=== PATIENT | female | born 1995 | race Caucasian/White ===

== ENCOUNTER 2017-02-07 08:18 | Emergency (ER) | payer OTHER ==
[~2017-02-07] VITALS: Ht 165.1 cm; Wt 79.5 kg
[2017-02-07] MEDS ORDERED: NS 1,000 ML IV ONE (09:45)
[2017-02-07] MEDS ORDERED: PROMETHAZINE INJ 25 MG/ML VIAL (J2550) IV ONE (09:45)
[2017-02-07 09:56] LABS: BASO # 0.1 K/mm3 (0.0-0.2); BASO % 0.5 % (0.0-1.0); EOS # 0.1 K/mm3 (0.0-0.50); EOS % 0.5 % (0.0-3.0); LARGE UNSTAINED CELL # 0.1 K/mm3 (0.0-0.4); LARGE UNSTAINED CELL % 0.7 % (0.0-4.0); LYMPH # 2.3 K/mm3 (1.5-6.5); LYMPH % 18.4 % (24.0-44.0); MEAN CORPUSCULAR HEMOGLOBIN 30.5 pg (27.0-33.0); MEAN CORPUSCULAR HGB CONC 35.7 g/dl (32.0-36.5); MEAN CORPUSCULAR VOLUME 85.5 fl (80.0-96.0); MONO # 0.4 K/mm3 (0.0-0.8); MONO % 2.9 % (0.0-5.0); NEUTROPHILS # 9.5 K/mm3 (1.8-7.7); PLATELET COUNT, AUTOMATED 373 k/mm3 (150-450); RED CELL DISTRIBUTION WIDTH 13.4 % (11.5-14.5); WHITE BLOOD COUNT 12.3 K/mm3 (4.0-10.0)
[2017-02-07 10:16] LABS: ANION GAP 9 MEQ/L (8-16); BLOOD UREA NITROGEN 11 MG/DL (7-18); CALCIUM LEVEL 9.6 MG/DL (8.5-10.1); CARBON DIOXIDE LEVEL 25 MEQ/L (21-32); CHLORIDE LEVEL 97 MEQ/L (98-107); CREATININE FOR GFR 0.87 MG/DL (0.55-1.02); GLOMERULAR FILTRATION RATE > 60.0 (>60); GLUCOSE, FASTING 81 MG/DL (70-105); POTASSIUM SERUM 3.4 MEQ/L (3.5-5.1); SODIUM LEVEL 131 MEQ/L (136-145)
[2017-02-07] MEDS ORDERED: DICL10TA PO (13:03)
[2017-02-07 13:15] VITALS: BP 124/80
== END 2017-02-07 13:17 | disposition home or self-care (01) ==
LOC: M ED 09:35
DX: O21.0 Mild hyperemesis gravidarum (principal); O26.891 Other specified pregnancy related conditions, first trimester; Z3A.01 Less than 8 weeks gestation of pregnancy; Z87.891 Personal history of nicotine dependence

== ENCOUNTER 2017-02-24 13:55 | Emergency (ER) | payer OTHER ==
[~2017-02-24] VITALS: Ht 165.1 cm; Wt 75.6 kg
[~2017-02-24 13:55] MED LIST: DICL10TA PO
[2017-02-24] MEDS ORDERED: METOCLOPRAMIDE 10 MG TAB PO ONE (14:30)
[2017-02-24] MEDS ORDERED: REGL10TA6 PO (16:02)
[2017-02-24 16:10] VITALS: BP 123/74
== END 2017-02-24 16:13 | disposition home or self-care (01) ==
LOC: M ED 13:55
DX: O21.0 Mild hyperemesis gravidarum (principal); Z3A.09 9 weeks gestation of pregnancy

== ENCOUNTER 2017-08-18 21:33 | Outpatient (CLI) | payer OTHER ==
[~2017-08-18 21:33] MED LIST changes: +REGL10TA6 PO
--- NOTE | 2017-08-20 08:08 | HPE ---
DATE OF ADMISSION: 08/18/2017 This lady is a 22-year-old, 1, para 0, last menstrual period (LMP) 12/22/2016, expected date of confinement (EDC) 09/28/2017, at 34 weeks who came in with decreased movement. Her risk factors is she has depression and she suffers from insomnia. She is on Unis[employer]. Labs show A positive. HIV negative. Hepatitis negative. RPR negative. Rubella immune. Varicella immune. Pap normal. Urine was negative. Gonorrhea and chlamydia were negative. 1-hour glucose was 99. Cystic fibrosis (CF) was negative. No acute distress. No contractions. Symphysis fundus height is 34, vertex presenting. Four quadrant bowel sounds are noted. She did have very moderate variability 6 by 25. heart rate is at 120. We showed her on the monitor strip, the baby is always in the green area, which is normal baseline. No decelerations. No contractions were noted. Urine is 1.000, pH 6, negative. Blood pressure 112/73. Respirations are 18. Pulse is 116. Temperature 97. We reviewed with her kick chart, premature rupture of membranes, labor, bleeding. She was uncomfortable to leave immediately because she has not been able to feel the baby move despite the fact there is a good category one strip. I explained her the placenta is anterior and sometimes she does not feel the baby as much as she should. She herself waited a little bit longer and after reviewing the strip again she felt better and she was discharged to follow up with her appointment on 08/28/2017. Again, we reemphasized kick chart, premature rupture of membranes, labor and bleeding. To return at any time or to call the provider at any time. The patient was discharged undelivered.
== END 2017-08-18 22:30 | disposition home or self-care (01) ==
LOC: M LDO 21:33
PROVIDERS: ATTEND Obstetrics & Gynecology
DX: O36.8130 Decreased fetal movements, third trimester, not applicable or unspecified (principal); Z3A.34 34 weeks gestation of pregnancy; O99.343 Other mental disorders complicating pregnancy, third trimester; G47.00 Insomnia, unspecified; O99.353 Diseases of the nervous system complicating pregnancy, third trimester

== ENCOUNTER 2017-09-17 22:56 | Outpatient (CLI) | payer OTHER | END 2017-09-18 00:10 | disposition home or self-care (01) | LOC: M LDO 22:56 | DX: O36.8130 Decreased fetal movements, third trimester, not applicable or unspecified (principal); Z3A.38 38 weeks gestation of pregnancy | CPT/HCPCS: 59025 ==

== ENCOUNTER 2017-10-05 18:08 | Inpatient (IN) | payer OTHER ==
[2017-10-05 19:58] LABS: HEMATOCRIT 39.5 % (36.0-47.0); HEMOGLOBIN 13.3 g/dl (12.0-16.0); MEAN CORPUSCULAR HEMOGLOBIN 29.7 pg (27.0-33.0); MEAN CORPUSCULAR HGB CONC 33.7 g/dl (32.0-36.5); MEAN CORPUSCULAR VOLUME 88.2 fl (80.0-96.0); PLATELET COUNT, AUTOMATED 291 10^3/uL (150-450); RED BLOOD COUNT 4.48 10^6/uL (4.00-5.40); RED CELL DISTRIBUTION WIDTH 17.2 % (11.5-14.5); WHITE BLOOD COUNT 11.2 10^3/uL (4.0-10.0)
[2017-10-05] MEDS: miSOPROStol 50 MCG 1/2 TAB (S0191) PO (20:32)
[2017-10-06] MEDS: miSOPROStol 50 MCG 1/2 TAB (S0191) PO (00:47)
[2017-10-06] MEDS ORDERED: OXYTOCIN DRIP 30 UNITS in APPROPRIATE DILUENT 1 EA IV ×2 (05:30→10:30)
[2017-10-06] MEDS ORDERED: miSOPROStol 50 MCG 1/2 TAB (S0191) PO (09:00)
[2017-10-06] MEDS ORDERED: LR 1,000 ML IV (16:10)
[2017-10-06] MEDS: NALBUPHINE HCL 10 MG/ML AMP (J2300) IV (16:35)
[2017-10-06] MEDS: PROMETHAZINE INJ 25 MG/ML VIAL (J2550) IV (16:37)
[2017-10-06] MEDS: NALBUPHINE HCL 10 MG/ML AMP (J2300) IM (16:39)
[2017-10-06] MEDS ORDERED: FENTANYL 2MCG/ML ROPIVACAINE 0.2% IN 0.9% NACL 200ML IVBAG As Ordered (19:56)
[2017-10-06] MEDS ORDERED: ePHEDrine SULFATE 25 MG/5 ML(5MG/ML) SYRINGE IV (21:16)
[2017-10-06] MEDS ORDERED: diphenhydrAMINE INJ 50MG/ML VIAL (J1200) IV (21:16)
[2017-10-06] MEDS ORDERED: NALOXONE INJ 0.4 MG/1 ML VIAL (J2310) IV (21:16)
[2017-10-06] MEDS ORDERED: EPIDURAL/PCA KEYS XX (21:16)
[2017-10-06] MEDS ORDERED: LACTATED RINGER'S 1000 ML IV (21:16)
[2017-10-06] MEDS ORDERED: ONDANSETRON 4MG/2ML VIAL (J2405) IV (21:16)
[2017-10-06] MEDS ORDERED: FENTANYL/ROPIVACAINE/NACL BAG 200 ML EPIDURAL (21:16)
[2017-10-06] MEDS ORDERED: EPIDURAL COMMENT XX (21:16)
[2017-10-06] MEDS ORDERED: REFRIGERATOR IV KEYS XX (21:16)
[2017-10-07] MEDS ORDERED: AZITHROMYCIN INJ 500MG VIAL (J0456) As Ordered (04:08)
[2017-10-07] MEDS ORDERED: ceFAZolin 2 GM/D5W 50 ML IV BAG (J0690 PER 500MG) As Ordered (05:07)
[2017-10-07] MEDS ORDERED: BICITRA 30ML SOLN UDC As Ordered (05:07)
[2017-10-07] MEDS ORDERED: LIDOCAINE PRES-FREE 2% 10ML AMP As Ordered ×3 (05:28→06:08)
[2017-10-07] MEDS ORDERED: SODIUM BICARBONATE 8.4% INJ 50 ML SYRINGE As Ordered (05:33)
[2017-10-07] MEDS ORDERED: OXYTOCIN INJ 10 UNITS/ML VIAL (J2590) As Ordered ×2 (06:03)
[2017-10-07] MEDS ORDERED: ONDANSETRON 4MG/2ML VIAL (J2405) As Ordered (06:24)
[2017-10-07] MEDS ORDERED: PHENYLephrine HCL 500 MCG/5 ML (100MCG/ML) SYRINGE (J2370) As Ordered (06:31)
[2017-10-07] MEDS ORDERED: MORPHINE PRES-FREE INJ 10 MG/10 ML VIAL (J2274) As Ordered (06:32)
[2017-10-07] MEDS ORDERED: NALOXONE INJ 0.4 MG/1 ML VIAL (J2310) IV ×2 (06:45)
[2017-10-07] MEDS ORDERED: ONDANSETRON 4MG/2ML VIAL (J2405) IV ×3 (06:45→07:30)
[2017-10-07] MEDS ORDERED: NALBUPHINE HCL 10 MG/ML AMP (J2300) IV (06:45)
[2017-10-07] MEDS ORDERED: METOCLOPRAMIDE INJ 10MG/2ML VIAL (J2765) IV ×2 (06:45→07:30)
[2017-10-07] MEDS ORDERED: fentaNYL 100 MCG/2 ML INJECTION (J3010) As Ordered (06:54)
[2017-10-07] MEDS ORDERED: BICITRA 30ML SOLN UDC PO (07:00)
[2017-10-07] MEDS ORDERED: AZITHROMYCIN INJ 500 MG, VIAL MATE ADAPTER 1 EACH in D5W 250 ML IV (07:00)
[2017-10-07] MEDS ORDERED: LR 1,000 ML IV (07:07)
[2017-10-07] MEDS ORDERED: PERCOCET 5MG/325MG TAB PO ×2 (07:15→07:30)
[2017-10-07] MEDS: KETOROLAC 30 MG/ML VIAL (J1885) IV ×3 (07:23→21:28)
[2017-10-07] MEDS ORDERED: fentaNYL 100 MCG/2 ML INJECTION (J3010) IV (07:30)
[2017-10-07] MEDS: LR 1,000 ML IV (07:30)
[2017-10-07] MEDS: DOCUSATE SODIUM 100 MG CAP PO ×2 (09:00→21:28)
[2017-10-07] MEDS: PRENATAL VITAMINS CHEWABLE TABLET PO (09:00)
[2017-10-07] MEDS: PERCOCET 5MG/325MG TAB PO ×2 (10:13→23:58)
[2017-10-07] MEDS: RHOGAM 300 MCG (1500 IU) INJ (J2790) IM (10:55)
[2017-10-07] MEDS: MEASLES,MUMPS,RUBELLA VACCINE INJ (MMR-II) (90707) SC (10:56)
[2017-10-08] MEDS: KETOROLAC 30 MG/ML VIAL (J1885) IV ×2 (02:18→09:15)
[2017-10-08 06:40] LABS: HEMATOCRIT 28.2 % (36.0-47.0); HEMOGLOBIN 9.4 g/dl (12.0-16.0); MEAN CORPUSCULAR HEMOGLOBIN 29.7 pg (27.0-33.0); MEAN CORPUSCULAR HGB CONC 33.3 g/dl (32.0-36.5); MEAN CORPUSCULAR VOLUME 89.2 fl (80.0-96.0); PLATELET COUNT, AUTOMATED 189 10^3/uL (150-450); RED BLOOD COUNT 3.16 10^6/uL (4.00-5.40); RED CELL DISTRIBUTION WIDTH 17.4 % (11.5-14.5); WHITE BLOOD COUNT 15.1 10^3/uL (4.0-10.0)
[2017-10-08] MEDS: DOCUSATE SODIUM 100 MG CAP PO ×2 (09:14→23:31)
[2017-10-08] MEDS: PRENATAL VITAMINS CHEWABLE TABLET PO (09:14)
[2017-10-08] MEDS: IBUPROFEN 800 MG TAB PO ×2 (16:34→23:31)
[2017-10-08] MEDS: PERCOCET 5MG/325MG TAB PO (23:30)
[2017-10-09] MEDS: DOCUSATE SODIUM 100 MG CAP PO (08:19)
[2017-10-09] MEDS: PRENATAL VITAMINS CHEWABLE TABLET PO (08:19)
[2017-10-09] MEDS: IBUPROFEN 800 MG TAB PO (08:20)
== END 2017-10-09 11:30 | disposition home or self-care (01) | DRG 766 ==
LOC: M LDI 18:08 → M OBS 10-07 08:28
PROC: 10D00Z1 Extraction of Products of Conception, Low, Open Approach (ICD-10-PCS; principal; 2017-10-07 05:47)
PROC: 3E0P7GC Introduction of Other Therapeutic Substance into Female Reproductive, Via Natural or Artificial Opening (ICD-10-PCS; 2017-10-07 05:47)
DX: O48.0 Post-term pregnancy (principal); Z3A.41 41 weeks gestation of pregnancy; O62.0 Primary inadequate contractions; Z37.0 Single live birth

== ENCOUNTER 2019-02-25 13:10 | Emergency (ER) | payer OTHER ==
[~2019-02-25] VITALS: Ht 165.1 cm; Wt 60.0 kg
[~2019-02-25 13:10] MED LIST changes: +COLA100C5 PO; +IBUP-1114 PO; +MAPA500T2 PO; +OXYC1TAB23 PO; +PRENTAB9 PO; +UNIS50CA PO
[2019-02-25] MEDS ORDERED: ADVI200C18 PO (13:28)
[2019-02-25 15:17] LABS: URINE PREG TEST NEGATIVE (NEGATIVE)
[2019-02-25 17:14] VITALS: BP 115/73
[2019-02-25] MEDS ORDERED: KEFL500C17 PO (17:14)
[2019-02-25] MEDS ORDERED: CEPHALEXIN 500 MG CAP PO ONE (17:30)
--- NOTE | 2019-02-25 17:50 | REP ---
ULTRASOUND LEFT BREAST: Real-time sonographic evaluation of the left breast was performed at the site of the palpable abnormality in the region of 1 o'clock. There is an oval hypoechoic nodule at that location with a hilum of increased echogenicity most consistent with an intramammary lymph node. This measures approximately 1.6 x 0.5 x 1.1 cm. No other cystic or solid nodule is seen on that region. IMPRESSION: ACR 2 benign. At the site of the palpable lump in the 1 o'clock region of the left breast there is a nodule consistent with an intramammary lymph node. Electronically Signed by Keith Starr MD 02/26/2019 04:16 P
--- NOTE | 2019-03-03 11:51 | ED PDOC ---
Post-Departure Follow-Up ft juan galicia faxed formal report of breast us for fu Jo Rose MD Mar 03, 2019 11:51
== END 2019-02-25 17:31 | disposition home or self-care (01) ==
LOC: M ED 13:10
DX: N64.4 Mastodynia (principal); Z87.891 Personal history of nicotine dependence